=== PATIENT | male | born 1995 | race Caucasian/White ===

== ENCOUNTER 2021-02-04 09:24 | Emergency (ER) | payer OTHER ==
[~2021-02-04] VITALS: Ht 185.4 cm; Wt 84.0 kg
[2021-02-04] MEDS ORDERED: TETANUS, DIPHTHERIA, PERTUSSIS VAC/PF 0.5ML (>7YR OLD) IM ONE (10:00)
[2021-02-04] MEDS ORDERED: LIDOCAINE HCL/EPINEPHRINE 1%-EPI 1:100,000 10 ML VIAL IJ ONE (10:00)
[2021-02-04] MEDS ORDERED: IBUPROFEN 600MG TABLET PO ONE (10:00)
[2021-02-04] MEDS ORDERED: LIDOCAINE HCL/EPINEPHRINE 1%-EPI 1:100,000 20 ML VIAL INFIL ONE (10:15)
[2021-02-04 11:15] VITALS: BP 121/41
== END 2021-02-04 11:16 | disposition home or self-care (01) ==
LOC: ER 09:24
DX: S71.112A Laceration without foreign body, left thigh, initial encounter (principal); Z91.010 Allergy to peanuts; Y93.18 Activity, surfing, windsurfing and boogie boarding; Y93.89 Activity, other specified; Y92.89 Other specified places as the place of occurrence of the external cause; Y99.8 Other external cause status
CPT/HCPCS: 12004; 90471; 90715; 99283; A4217; J3490